=== PATIENT | female | born 2000 | race Caucasian/White ===

== ENCOUNTER 2020-01-13 14:33 | Emergency (ER) | payer OTHER ==
[~2020-01-13] VITALS: Ht 175.3 cm; Wt 83.9 kg
[2020-01-13] MEDS ORDERED: NAPROSYN500 MG PO (15:54)
[2020-01-13 17:24] VITALS: BP 140/76
== END 2020-01-13 17:25 | disposition home or self-care (01) ==
LOC: ER 14:33
DX: S93.401A Sprain of unspecified ligament of right ankle, initial encounter (principal); F12.90 Cannabis use, unspecified, uncomplicated; X50.1XXA Overexertion from prolonged static or awkward postures, initial encounter; Y93.89 Activity, other specified; Y92.89 Other specified places as the place of occurrence of the external cause; Y99.9 Unspecified external cause status